=== PATIENT | male | born 1995 | race Caucasian/White ===

== ENCOUNTER 2018-11-27 19:57 | Emergency (ER) | payer OTHER ==
[~2018-11-27] VITALS: Ht 172.7 cm; Wt 81.7 kg
[~2018-11-27 19:57] MED LIST: NORCO 5-325 TA1 EACH PO
[2018-11-27] MEDS ORDERED: SEROQUEL 50 MG50 MG PO (20:05)
[2018-11-27] MEDS ORDERED: ATIVAN1 MG PO (20:05)
[2018-11-27] MEDS ORDERED: ESKALITH CR450 MG (20:05)
[2018-11-27] MEDS ORDERED: NAPROSYN500 MG PO (21:02)
[2018-11-27 21:11] VITALS: BP 102/63
== END 2018-11-27 21:11 | disposition home or self-care (01) ==
LOC: M.ERS 19:57
DX: S62.330A Displaced fracture of neck of second metacarpal bone, right hand, initial encounter for closed fracture (principal); F17.200 Nicotine dependence, unspecified, uncomplicated; W22.8XXA Striking against or struck by other objects, initial encounter; Y92.89 Other specified places as the place of occurrence of the external cause; Y93.89 Activity, other specified; Y99.8 Other external cause status

== ENCOUNTER 2019-05-31 08:28 | Emergency (ER) | payer OTHER ==
[~2019-05-31] VITALS: Ht 170.2 cm; Wt 79.4 kg
[2019-05-31 08:28] VITALS: BP 154/100
[~2019-05-31 08:28] MED LIST changes: +ATIVAN1 MG PO; +ESKALITH CR450 MG; +NAPROSYN500 MG PO; +SEROQUEL 50 MG50 MG PO
== END 2019-05-31 09:04 | disposition home or self-care (01) ==
LOC: M.ERS 08:28
DX: S51.812A Laceration without foreign body of left forearm, initial encounter (principal); F41.9 Anxiety disorder, unspecified; F31.9 Bipolar disorder, unspecified; F90.9 Attention-deficit hyperactivity disorder, unspecified type; W26.8XXA Contact with other sharp object(s), not elsewhere classified, initial encounter; Y93.89 Activity, other specified; Y92.89 Other specified places as the place of occurrence of the external cause; Y99.8 Other external cause status